=== PATIENT | male | born 1995 | race Caucasian/White ===

== ENCOUNTER 2017-06-10 05:47 | Day surgery (SDC) | payer BC ==
[~2017-06-10] VITALS: Ht 167.6 cm; Wt 54.1 kg
[2017-06-10 06:33] VITALS: Ht 167.6 cm; Wt 54.1 kg
[2017-06-10] MEDS ORDERED: PROPOFOL 20 ML ONE (07:24)
[2017-06-10] MEDS ORDERED: FENTAnyl 50 MCG/ML VIAL ONE (07:25)
[2017-06-10] MEDS ORDERED: MIDAZOLAM 1 MG/ML 2 ML INJ ONE (07:25)
[2017-06-10 07:26] VITALS: BP 123/71; PULSE 60; RESP 26
--- NOTE | 2017-06-10 07:53 | OPPN ---
Date/Time of Note Date/Time of Note DATE: 06/10/17 TIME: 07:51 Operative Report Preoperative Diagnosis Dysphagia Postoperative Diagnosis Gastroesophageal reflux disease Gastritis with erosions Operation/Procedure Performed Esophagogastroduodenoscopy and biopsy Provider: JULIO BACA MD Anesthesia Type: MAC Estimated blood loss: none Transfusion Required: no Specimens Gastric mucosal biopsy Grafts/Implants: none Complications: no JULIO BACA MD Jun 10, 2017 07:53
[2017-06-10 08:11] VITALS: BP 104/58; PULSE 50; RESP 14
--- NOTE | 2017-06-10 08:46 | GILP ---
DATE OF PROCEDURE: 06/10/2017 PROCEDURE PERFORMED: Esophagogastroduodenoscopy and biopsy. SURGEON: Adrian Bender MD. PREOPERATIVE DIAGNOSIS: Dysphagia. POSTOPERATIVE DIAGNOSES: 1. Gastroesophageal reflux disease. 2. Gastritis with erosions. 3. Gastric mucosal biopsies were taken for Helicobacter pylori test. INDICATION: Mr. Albert Pérez is a 22-year-old male patient who had dysphagia. The patient was scheduled for endoscopy for further evaluation. The procedure and possible complications were well explained to the patient. He understood and consented to the procedure. DESCRIPTION OF PROCEDURE: Under influence of anesthesia, the gastroscope was carefully introduced into the esophagus, and under direct vision, it was advanced to the stomach, into the pylorus, into the duodenal bulb, and descending duodenum. FINDINGS: Esophagus: The patient had gastroesophageal reflux disease. Stomach: He had gastritis with erosions. Gastric mucosal biopsies were taken for H pylori test. Duodenum was normal. He tolerated the procedure very well. There was no complication from the procedure. At the end of procedure, he was awake with stable vital signs and he was discharged home in the care of his family. IMPRESSION: 1. Gastroesophageal reflux disease. 2. Gastritis with erosions. 3. Gastric mucosal biopsies were taken for Helicobacter pylori test. PLAN: 1. Nexium 24 hours p.o. in the morning. 2. Await H pylori test report. Dictated By: MD IRAIS Schwarz/hollis/hung /Document#: [id number]
== END 2017-06-10 15:56 | disposition home or self-care (01) ==
LOC: GIL 05:47
PROVIDERS: ATTEND Internal Medicine Gastroenterology
DX: K21.9 Gastro-esophageal reflux disease without esophagitis (principal); K29.60 Other gastritis without bleeding; J45.909 Unspecified asthma, uncomplicated
CPT/HCPCS: 43239; 87081; J2250; J3010; Z7610

== ENCOUNTER 2017-12-15 12:56 | Emergency (ER) | END 2017-12-15 17:20 | disposition home or self-care (01) ==

== ENCOUNTER 2018-02-14 21:40 | Inpatient (IN) | END 2018-02-22 16:50 | disposition home or self-care (01) | DRG 310 ==